=== PATIENT | female | born 1980 | race Caucasian/White ===

== ENCOUNTER → 2019-10-14 10:58 | Outpatient (CLI) | payer OTHER, SELFPAY ==
--- NOTE | 2019-10-14 11:01 | DI.US.S_ITS ---
PROCEDURE: US OB >= 14 WEEKS FETUS INDICATIONS: ANATOMY SCAN OUTSIDE/PRIOR DATING DATA: Last menstrual period (LMP): 05/26/19. LMP-based estimated date of delivery (ORA): 03/01/20. First dating scan (date and location): [facility], 10/14/19. Estimated date of delivery (ORA) from first dating scan: 02/27/20. TECHNIQUE: Real-time scanning was performed of the fetus, with image documentation and biometric measurements. COMPARISON: None. FINDINGS: General: A single live intrauterine gestation is present. Presentation: Vertex. Placenta: Placental position is posterior, without previa. Amniotic fluid index: 18.1 cm, normal range is 5-24 cm. heart rate: 152 beats per minute. Maternal cervical canal: 4.1 cm long. Normal lower limit is 2.5 cm. biometrics: Biparietal diameter: 4.9 cm equals 20 weeks 5 days Head circumference: 18.2 cm equals 20 weeks 4 days Abdominal circumference: 15.7 cm equals 20 weeks 6 days Femur length: 3.2 cm equals 20 weeks 0 days Estimated gestational age from initial scan: 20 weeks 1 day Composite gestational age from present scan: 20 weeks 4 days Estimated weight and percentile: 360 g, 68th percentile Measurement variability for biometric dating: +/- 7 days from 14 weeks to 15 weeks 6 days gestation, +/- 10 days from 16 weeks to 21 weeks 6 days gestation, +/- 2 weeks from 22 weeks to 27 weeks 6 days gestation, +/- 3 weeks for 28 weeks gestation or later. weight reference: 4500 g or EFW >90/95% is considered macrosomia or large for gestational age. EFW <10% is small for gestational age. EFW 5% or less is considered intra-uterine growth restriction. Anatomic survey: Neuro: Ventricles are non-dilated at less than 10 mm. Cisterna magna is normal at 3-11 mm. Cerebellum is normal in size and morphology. Nuchal skin fold: Normal at less than 6 mm between 14-21 weeks gestational age. Face: Nose and lips, facial profile are normal. Spine: No evidence for spina bifida. Heart: 4-chambered heart is present, with normal ventricular outflow tracts. Diaphragm: Diaphragm is intact. Stomach: Left-sided stomach is present. Kidneys: No hydronephrosis. Normal is less than 5 mm in 2nd trimester, less than 7 mm in 3rd trimester. Cord: 3-vessel cord has orthotopic insertion. Bladder: Normal in size. Extremities: All 4 extremities identified. IMPRESSION: A single live intrauterine is seen. No anatomic abnormalities are identified. No significant discrepancy is found between the estimated gestational age based on these images and the estimated gestational age based upon the given date of the last menstrual period. Dictated by: Josiah Mathur M.D. on 10/14/2019 at 16:49 Approved by: Josiah Mathur M.D. on 10/14/2019 at 16:50
== END ==
PROVIDERS: Referring Provider Obstetrics & Gynecology; Visit Provider Obstetrics & Gynecology
DX: Z36.89 Encounter for other specified antenatal screening (principal); Z3A.20 20 weeks gestation of pregnancy
CPT/HCPCS: 76811

== ENCOUNTER → 2019-11-29 13:05 | Outpatient (CLI) | payer OTHER, SELFPAY ==
[2019-11-29 14:34] LABS: Appearance Urine UA CLEAR; Bilirubin Urine UA NEGATIVE (NEGATIVE); Color Urine UA YELLOW; Glucose Urine UA NEGATIVE (Negative); Hematocrit 33.7 % (36-46); Hemoglobin 11.5 g/dL (12.0-16.0); Ketones Urine UA TRACE (NEGATIVE); Leukocyte Esterase Urine UA NEGATIVE (NEGATIVE); Nitrite Urine UA NEGATIVE (Negative); Occult Blood Urine UA TRACE-INTACT (Negative); Protein Urine UA NEGATIVE (Negative); Urobilinogen Urine UA 0.2 E.U./dL (0.2)
[2019-11-29 15:39] LABS: GTT (PREG) 1 Hour PP 50gm Dose 134 mg/dL (76-139)
[2019-12-02 16:49] LABS: Hep C Virus Ab w/Reflex Quant NEGATIVE s/c (NEGATIVE)
== END ==
PROVIDERS: Referring Provider Obstetrics & Gynecology; Visit Provider Obstetrics & Gynecology
DX: Z34.82 Encounter for supervision of other normal pregnancy, second trimester (principal); Z3A.22 22 weeks gestation of pregnancy
CPT/HCPCS: 36415; 81003; 82950; 83036; 85014; 85018; 86803; 86850; 86900; 86901; 87086

== ENCOUNTER → 2020-02-03 12:09 | Outpatient (CLI) | payer OTHER, SELFPAY ==
[2020-02-04 14:45] LABS: Strep Grp B PCR POS for Grp B Strep
== END ==
PROVIDERS: Visit Provider Obstetrics & Gynecology
DX: Z34.83 Encounter for supervision of other normal pregnancy, third trimester (principal); Z3A.36 36 weeks gestation of pregnancy
CPT/HCPCS: 87186; 87653

== ENCOUNTER → 2020-02-21 15:31 | Outpatient (CLI) | payer OTHER, SELFPAY ==
[2020-02-22 08:30] LABS: COVID19 Sendout Not Detected (Not Detect)
== END ==
PROVIDERS: Visit Provider Physician Assistant
DX: Z11.59 Encounter for screening for other viral diseases (principal)
CPT/HCPCS: 87635

== ENCOUNTER 2020-02-23 19:59 | Inpatient (IN) | payer OTHER, SELFPAY ==
[2020-02-23] MEDS: DINOPROSTONE VAG (CERVIDIL) 10 MG VAG (21:00)
[2020-02-23 21:45] LABS: Add Manual Diff / Slide Review NO; Basophils Absolute Auto 100 /uL (0-100); Basophils Percent Auto 0.6 % (0-2); Eosinophils Absolute Auto 100 /uL (0-450); Eosinophils Percent Auto 0.8 % (2-4); Hemoglobin 12.5 g/dL (12.0-16.0); Lymphocytes Absolute Auto 1800 /uL (1100-4500); Lymphocytes Percent Auto 16.8 % (25-40); Mean Corpuscular HGB Conc 33.8 % (30-36); Mean Corpuscular Hemoglobin 31.4 PG (26-34); Mean Corpuscular Volume 92.7 fL (80-100); Monocytes Absolute Auto 600 /uL (0-900); Monocytes Percent Auto 5.4 % (3-14); Neutrophils Absolute Auto 8300 /uL (1500-7000); Neutrophils Percent Auto 76.4 % (50-75); Platelet Count 181 X10^3/uL (150-400); Red Blood Cell Count 3.99 X10^6/uL (4.0-5.2); Red Cell Distribution Width 13.7 % (11.6-14.8); White Blood Cell Count 10.9 X10^3/uL (4.5-11.0)
[2020-02-23 22:24] VITALS: BP 119/55
[2020-02-24] MEDS: LACTATED RINGERS 1,000 ML 100 ML IV ×2 (00:59→10:43)
[2020-02-24] MEDS: CEFAZOLIN 1 GM/50 ML FROZ.PIGGY IV ×2 (01:00→09:08)
--- NOTE | 2020-02-24 08:01 | PM.OBHP.1 ---
OB HPI Date/Time Date of admission: 02/23/20 Date Patient Seen: 02/24/20 Time Patient Seen: 09:49 History of Present Condition Chief complaint: EVAL OF LABOR : 9 Para: 7 Estimated Date of Delivery: 03/02/20 Estimated Gestational Age (weeks): 39 Narrative: Margi Lee is a 39 year old @39+1 admitted for elective induction of labor. The patient reports intermittent contractions that are not sustained, and is otherwise feeling well with no complaints obstetrical or otherwise. Her has been uncomplicated, and she has a history of 7 term vaginal deliveries. Indications Indication for induction OB: history of rapid labor History of Present care: good care Ultrasounds: normal 1st trimester US and normal mid trimester US Obstetrical complications: none Medical complications: none Preadmission Labs Blood type: A (+) positive -: Antibody screen: negative, GBS status: positive, HBsAG: negative, HIV: negative and RPR/VDLR: negative -: Chlamydia screen: not detected and Gonorrhea screen: not detected -: Rubella: immune Cell-free DNA: declined screening Urine: negative 1 hr GTT: 134 Prior (ies) History: G1: 01/01/08, 10 wks, SAB, exp. managed G2: 01/06/09, 37 wks, , F, 6lb G3: 09/02/10, 40 wks, , M, 9# G4: 02/27/12, 38 wks, , M, 7#, GDMA G5: 10/19/13, 39 wks, , 8#, F, GDMA G6: 04/16/15, 41 wks, , 8#, F G7: 10/13/16, 40 wks, , 8#, F G8: 08/20/18, 39 wks, , 7#8, F, ?shoulder dystocia (patient uncertain) Evaluation Evaluation Baseline heart rate: 150 Variability: Moderate (11-25) monitor accelerations: Present monitor decelerations: Absent Contraction Frequency (minutes): 8 Cervical dilation (cm): 3 Cervical effacement (%): 100 station: -2 Laboratory results: Laboratory Tests 02/23/20 02/23/20 21:30 21:30 WBC 10.9 RBC 3.99 L Hgb 12.5 Hct 37.0 MCV 92.7 MCH 31.4 MCHC 33.8 RDW 13.7 Plt Count 181 Neut % (Auto) 76.4 H Lymph % (Auto) 16.8 L [place] % (Auto) 5.4 Eos % (Auto) 0.8 L Baso % (Auto) 0.6 Neut # (Auto) 8300 H Lymph # (Auto) 1800 [place] # (Auto) 600 Eos # (Auto) 100 Baso # (Auto) 100 Blood Type A Positive Antibody Screen Positive Antibody Identification Anti-E PFSH Medical History AMA (advanced maternal age) multigravida 35+ (Acute) Gestational diabetes mellitus (Acute) (spontaneous vaginal delivery) (Acute) Surgical History Hx of LASIK (Acute ~2007) [place] teeth extracted (Acute) Family History Mother Hypertension Father Diabetes mellitus Family/Other Cystic fibrosis Grandfather Cancer Bile duct cancer Grandfather Cancer Pancreatic cancer Grandmother Cancer Leukemia Grandmother Cancer Social History marital status: number of children: 7 household members: spouse and children pets and animals: No education level: college occupational status: unemployed current occupational exposures/hazards: No special alonso needs: No Smoking Status: Never smoker second hand exposure: No substance use type: does not use Meds Home Medications and Allergies Home Medications Medication Instructions Recorded Confirmed Type docosahexaenoic acid 200 mg capsule 200 mg PO DAILY 08/21/19 02/24/20 History prenat.vits,blue,[id number] 1 tab PO DAILY 08/21/19 02/24/20 History Allergies Allergy/AdvReac Type Severity Reaction Status Date / Time amoxicillin Allergy Intermediate Rash Verified 02/23/20 22:28 Review of Systems Constitutional Constitutional: Reports system reviewed and no additional complaints, except as documented Cardiovascular Cardiovascular: Reports system reviewed and no additional complaints, except as documented Respiratory Respiratory: Reports system reviewed and no additional complaints, except as documented Gastrointestinal Gastrointestinal: Reports system reviewed and no additional complaints, except as documented Genitourinary Genitourinary: Reports system reviewed and no additional complaints, except as documented Musculoskeletal Musculoskeletal: Reports system reviewed and no additional complaints, except as documented Neurologic Neurologic: Reports system reviewed and no additional complaints, except as documented Hematologic/Lymphatic Hematologic/Lymphatic: Reports system reviewed and no additional complaints, except as documented Exam Vital Signs (past 8 hours): 118/68, HR 60 Const General: cooperative, healthy appearing and comfortable Objective Labs Result Diagrams: 02/23/20 21:30 Labs: Laboratory Results - last 24 hr 02/23/20 02/23/20 21:30 21:30 WBC 10.9 RBC 3.99 L Hgb 12.5 Hct 37.0 MCV 92.7 MCH 31.4 MCHC 33.8 RDW 13.7 Plt Count 181 Neut % (Auto) 76.4 H Lymph % (Auto) 16.8 L [place] % (Auto) 5.4 Eos % (Auto) 0.8 L Baso % (Auto) 0.6 Neut # (Auto) 8300 H Lymph # (Auto) 1800 [place] # (Auto) 600 Eos # (Auto) 100 Baso # (Auto) 100 Blood Type A Positive Antibody Screen Positive Antibody Identification Anti-E Assessment and Plan Assessment and Plan Assessment and Plan narrative: This patient was admitted overnight for cervical ripening with cervidil, and tolerated this well. She will be started on pitocin per protocol this AM. She is GBS positive with a mild PCN allergy, and received Ancef 1g q8hr overnight due to her history of rapid labors. - cEFM, toco - pitocin per protocol - T&S+ this AM, marked as previously negative during this admission for discussion with blood bank - epidural when desired
[2020-02-24] MEDS: OXYTOCIN PREMIX 30 UNIT/500 ML PLAST..BAG IV (09:29)
--- NOTE | 2020-02-24 13:05 | PM.OBPNLAB ---
Date/Time Date Patient Seen: 02/24/20 Time Patient Seen: 13:06 Pain Control Pain control: epidural Comments: VSS Pelvic Exam Dilation (cm): 5 Effacement (%): 75 station: -2 Amniotic membrane status: Ruptured (clear, slight blood tinge) Contractions Contractions on admission: regular Monitor mode: External Pitocin rate (mU/min): 10 Contraction frequency (min): 3 Contraction pattern: Regular Status status: Category l Heart Rate Baseline: 135 Monitor Accelerations: Present Monitor Decelerations: Absent Monitor Variability: Moderate Assessment and Plan Assessment: induction ongoing Plan: continuous present management
--- NOTE | 2020-02-24 17:01 | P.PCNOB_ITS ---
Events: Meconium Stained Fluid Labor & Delivery Delivery date: 02/24/20 Intrapartal events: Acceleration and Deceleration Cervical ripening method: per Cervidil protocol Induction method: per pitocin protocol Delivery augmentation: rupture of membranes Delivery monitor: external FHT and external uterine Route of delivery: L&D Laceration Description: None Estimated blood loss (mL): 100 Anesthesia type: Epidural Narrative: This patient presented for induction of labor due to a history of shoulder dystocia and rapid labor in the setting of grand multiparity. Her cervix was ripened overnight with cervidil, and and was induced with pitocin and later AROM for thin meconium stained fluid. She was GBS+, and received 2x doses of Ancef due to a mild PCN allergy. She progressed to fully dilated, and after a second stage, was delivered of a healthy baby girl, apgars 9+9, weight 8#9. There was no nuchal cord, and the shoulders delivered with ease with a transverse presentation. After delayed cord clamping, the cord was clamped and cut. The placenta delivered spontaneously and intact shortly thereafter, and there were no perineal or other laceration. The immediate period was uncomplicated, and the patient received pitocin per the usual protocol. [place] Baby 1: gender: Female Presentation: vertex position: Left Occiput Transverse (direct OA) Placenta delivery description: Spontaneous cord vessel description: 3 Vessels score (1 min): 9 score (5 min): 9 Plan for aftercare: Routine care.
[2020-02-24] MEDS: IBUPROFEN 600 MG TABLET PO (22:30)
[2020-02-25] MEDS: IBUPROFEN 600 MG TABLET PO ×2 (05:37→12:24)
--- NOTE | 2020-02-25 07:49 | PM.OBPN.1 ---
Subjective - OB Subjective Patient comments: no complaints, pain well controlled, tolerating diet and flatus present baby status: doing well and nursing well [place] feeding status: exclusively breast feeding Narrative: This patient is a PPD#1 s/p after elective IOL. Patient is ambulating, voiding, passing flatus, moderate lochia, good pain control, tolerating PO. Date Patient Seen: 03/27/20 Time Patient Seen: 07:45 Exam Vital Signs (past 8 hours): 120/67, HR 54 Resp Effort & Inspection: normal respiratory effort Auscultation: clear to auscultation bilaterally Cardio Rate: regular rate Rhythm: regular rhythm GI Palpation: soft and No tender Other: fundus firm, well below u External Female Exam: normal external appearance Objective Labs Result Diagrams: 02/23/20 21:30 Assessment & Plan Plan day: 1 plan OB: discharge home Comments: Patient meeting goals, for discharge home with routine precautions. Time Spent With Patient Time: Total time spent is greater than 50% in coordination of care (as documented) at patient's floor/unit and/or counseling patient: Time with patient: 15-24 minutes
--- NOTE | 2020-02-25 07:50 | P.DS_ITS ---
Discharge Providers Provider Date of admission: 02/23/20 19:59 Discharge Date: 03/14/20 Consults: 02/25/20 17:00 Consult to [employer] Paralegal Routine Comment: Discharge provider: Jessa Carrasco MD Summary Hospital Course Date Patient Seen: 02/25/20 Time Patient Seen: 07:45 Procedures: Hospital Course: This patient was admitted for elective induction of labor, and was induced with pitocin. She was delivered of a healthy baby girl, had no intrapartum or complications, and was discharged on day 1. Peripartum Data Infant Delivery Method: Natural Vaginal Laceration Description: None complications: none 1: Gender: Female Disposition of : home Status at Discharge Cognitive/behavioral status at discharge: oriented Functional status at discharge: independent ambulation Overall status at discharge: patient is progressing back to baseline Time Spent with Patient Time attestation: Total time spent providing and/or coordinating discharge services: Objective Labs Result Diagrams: 02/23/20 21:30 Discharge Plan Discharge Plan Patient Disposition: Home Discharge orders & Medications Prescriptions: New ibuprofen 600 mg tablet 600 mg PO Q8H PRN (Reason: pain) Qty: 30 RF: 0 Continued prenat.vits,blue,[id number] Tablet 1 tab PO DAILY RF: 0 Algal Waterproof-3 DHA 200 mg capsule 200 mg PO DAILY RF: 0 Follow up/Referrals: Jessa Carrasco MD [Physician] - 6 Weeks (Appointment with on at 11:00 am) Diet/Activity/Treatments Diet: Regular Activity: Nothing in the vagina for 6 weeks. Avoid heavy lifting for 6 weeks. If you have increasing bleeding, pain, fevers, chills, nausea, vomiting, headaches, or any other symptoms or questions, call or come to the emergency department. Skin/Wound/Dressing Care Report to your healthcare provider any signs of infection, such as:: chills, fever, night sweats, increased pain, unusual drainage and unusual redness Visit Report/Discharge Packet Instructions: DI for Labor and Delivery, Vaginal Visit Report Forms: Patient Portal/API, Stroke Signs & Symptoms Discharges patient from system. Discharge Date/Time: 02/25/20 16:52
[2020-02-25] MEDS: PRENATAL VIT,CALC/IRON/FOLIC 1 TABLET 1 TAB PO (08:10)
[2020-02-25 10:15] VITALS: BP 120/69; PULSE 54; RESP 18; TEMP 36.6
[2020-02-25] MEDS: MEASLES,MUMPS,RUBELLA VACC/PF 0.5 ML VIAL SUBCUT (15:34)
== END 2020-02-25 16:52 | disposition home or self-care (01) | DRG 807 ==
PROVIDERS: Admitting Provider Obstetrics & Gynecology; Referring Provider Obstetrics & Gynecology; Visit Provider Obstetrics & Gynecology
DX: O99.824 Streptococcus B carrier state complicating childbirth (principal); Z37.0 Single live birth; Z3A.39 39 weeks gestation of pregnancy; O77.0 Labor and delivery complicated by meconium in amniotic fluid
CPT/HCPCS: 01967; 59025; 59050; 59200; 59400; 76815; 85025; 86850; 86870; 86900; 86901; G0379; J2590